=== PATIENT | female | born 1945 | race African-American/Black ===

== ENCOUNTER 2017-02-16 13:51 | Outpatient (CLI) | payer MEDICARE ==
--- NOTE | 2017-02-16 21:36 | RAD ---
LUMBAR SPINE TWO VIEWS 02/16/17 Flexion and extension lateral views were compared with a 10/27/16 study. The prior exam showed grade I anterolisthesis of L4 on L5 with minimal movement between flexion and extension. Today's exam shows much of the same with less than 1 mm of movement between flexion and extension of L4 on L5. The L4-L5 disc space seems a bit narrower today than it was before, however. The L3-L4 di sc space remains narrow. There does appear to be a slight 4 to 5 mm anterolisthesis of L3 on L4 toda y that I do not see on the 10/27/16 study. IMPRESSION: 1. Anterior slippage of L4 on L5 is about 7 mm and change is less than 1 mm between flexion and extension. The L4-L5 disc space seems narrower today than on the prior exam. 2. Disc narrowing is present at L3-L4 and today there is about a 4 mm anterior slippage of L3 o n L4 with flexion which was not appreciated on the prior exam. POS: HOME
== END 2017-02-16 13:52 | disposition home or self-care (01) ==
LOC: BURMRI 13:51
PROVIDERS: ATTEND Specialist
DX: Z01.812 Encounter for preprocedural laboratory examination (principal); M48.06 Spinal stenosis, lumbar region; M51.36 Other intervertebral disc degeneration, lumbar region
CPT/HCPCS: 36415; 72100; 72148; 82565

== ENCOUNTER 2017-09-06 11:17 | Outpatient (CLI) | payer MEDICARE ==
--- NOTE | 2017-09-06 22:56 | RAD ---
RIGHT KNEE FOUR VIEWS 09/06/17 No acute fracture was seen. There are some meniscal calcifications present, especially laterally. A few flecks of bone are seen in the central portion of the joint, along with some irregularity of the tibial spines. This suggests the possibility of prior cruciate ligament injury. Mild medial joint s pace narrowing and osteophytes are present. Patellofemoral osteophytes are seen. There is no large e ffusion. IMPRESSION: Mild arthritic changes with possible old cruciate ligament injury. POS: HOME
== END 2017-09-06 11:18 | disposition home or self-care (01) ==
LOC: BURRAD 11:17
PROVIDERS: ATTEND Family Medicine
DX: M25.561 Pain in right knee (principal); M17.11 Unilateral primary osteoarthritis, right knee

== ENCOUNTER 2019-08-28 11:47 | Emergency (ER) | payer MEDICARE ==
[2019-08-28 12:22] LABS: #Basophils 0.1 thou/uL (0.0-0.2); #Lymphocytes 0.8 thou/uL (1.20-3.40); #Monocytes 0.8 thou/uL (0.11-0.59); #Neutrophils 13.4 thou/uL (1.40-6.50); %Basophils 0.6 % (0.0-1.0); %Eosinophils 0.1 % (0.0-10.0); %Lymphocytes 5.1 % (21.0-51.0); %Monocytes 5.4 % (0.0-10.0); %Neutrophils 88.9 % (42.0-75.0); Hemoglobin 7.3 g/dL (12.0-16.0); Mean Corpuscular HGB CONC 29.1 g/dL (32.0-36.0); Mean Corpuscular Hemoglobin 25.2 pg (27.0-31.0); Mean Corpuscular Volume 86.8 fL (78.0-98.0); Mean Platelet Volume 5.4 fL (7.4-10.4); Platelet Count 395 thou/uL (130-400); Red Blood Cell (RBC) Count 2.87 mill/uL (4.20-5.40)
[2019-08-28 12:37] LABS: ALT (SGPT) Less than 7 U/L (8-55); AST (SGOT) 23 U/L (5-34); Albumin 2.1 g/dL (3.4-4.8); Alkaline Phosphatase 120 U/L (40-110); Anion Gap 13 mmol/L (10-20); BUN (Urea Nitrogen) 21 mg/dL (9.8-20.1); Bilirubin, Total 0.3 mg/dL (0.2-1.2); CK (CPK) 74 U/L (29-168); Calc. Creatinine Clearance 0 mL/min (70-130); Calcium 8.1 mg/dL (7.8-10.44); Carbon Dioxide 22 mmol/L (23-31); Chloride 108 mmol/L (98-107); Estimated GFR-MDRD 25; Globulin 4.1 g/dL (2.4-3.5); Glucose 78 mg/dL (83-110); Potassium 5.2 mmol/L (3.5-5.1); Protein, Total 6.2 g/dL (6.0-8.3); Sodium 138 mmol/L (136-145)
[2019-08-28 12:48] LABS: Anisocytosis SLIGHT = 6-15 cells (100X) (0-5/hpf); Elliptocytes SLIGHT = 2-5 cells (100X) (0-1/hpf); Hypochromia SLIGHT = 6-15 cells (100X) (0-5/hpf); MDiff Complete? YES; Platelet Morphology Comment Appears Adequate; Poikilocytosis SLIGHT = 6-15 cells (100X) (0-5/hpf); Schistocytes SLIGHT = 2-5 cells (100X) (0-1/hpf)
[2019-08-28 12:55] LABS: CKMB 0.9 ng/mL (0-6.6)
[2019-08-28 13:07] LABS: Bilirubin Negative (Negative); Blood, Urine Negative (Negative); Clarity Cloudy (Clear); Glucose, Urine (Dipstick) Negative (Negative); Leukocyte Small (Negative); Nitrite Positive (Negative); Protein, Urine (Dipstick) Negative (Neg-Trace); Urobilinogen 0.2 mg/dL (Less than 2)
[2019-08-28 13:21] LABS: Bacteria/HPF 2+ HPF (None Seen); RBC/HPF None Seen HPF (0-3); Squamous Epithelial 0-3 HPF (0-3); Yeast-Budding 1+ HPF (None Seen)
[2019-08-28] MEDS ORDERED: Sodium Chloride 0.9% 0 ML ONE (13:27)
[2019-08-28] MEDS ORDERED: cefTRIAXone\\ROCEPHIN 1 GM VIAL ONE (13:27)
[2019-08-28] MEDS ORDERED: Sodium Chloride 0.9% 100 ML ONE (13:34)
--- NOTE | 2019-08-28 17:22 | RAD ---
PORTABLE CHEST: 08/28/19 An AP portable film at 1237 is presented with comparison of a 07/09/19 study from [facility]. The heart is normal in size. There is no vascular congestion, edema, or pleural effusion. The lungs a re currently clear. A prominent fat pad is suggested in the right cardiophrenic angle. A Mediport cat heter remains in place as before. IMPRESSION: No acute thoracic findings. POS: HOME
== END 2019-08-28 14:05 | disposition home or self-care (01) ==
LOC: BURERS 11:47
DX: E87.5 Hyperkalemia (principal); N39.0 Urinary tract infection, site not specified; R74.8 Abnormal levels of other serum enzymes; N17.9 Acute kidney failure, unspecified; E78.5 Hyperlipidemia, unspecified; I12.9 Hypertensive chronic kidney disease with stage 1 through stage 4 chronic kidney disease, or unspecified chronic kidney disease; N18.3 Chronic kidney disease, stage 3 (moderate); F17.210 Nicotine dependence, cigarettes, uncomplicated; Z79.899 Other long term (current) drug therapy
CPT/HCPCS: 36415; 71045; 80053; 81003; 81015; 82550; 82553; 83605; 84484; 85025; 93005; 96365; J0696; J3490